=== PATIENT | female | born 1975 | race Caucasian/White ===

== ENCOUNTER → 2017-12-28 23:34 | Outpatient (CLI) | payer BC ==
[2012-03-14 06:30] VITALS: BMI 26.1
== END | disposition home or self-care (01) ==
LOC: D.MAMMO 12-06 11:30
DX: Z12.31 Encounter for screening mammogram for malignant neoplasm of breast (principal)

== ENCOUNTER → 2018-01-31 09:22 | Outpatient (CLI) | payer BC ==
[2012-03-14 06:30] VITALS: BMI 26.1
== END | disposition home or self-care (01) ==
LOC: D.MAMMO 01-23 14:30
DX: R92.8 Other abnormal and inconclusive findings on diagnostic imaging of breast (principal)

== ENCOUNTER → 2021-02-21 09:24 | Outpatient (CLI) | payer BC ==
[2012-03-14 06:30] VITALS: BMI 26.1
[2021-02-21 10:15] LABS: BASOPHILS 0.7 % (0-2); EOSINOPHILS 2.5 % (0-7); HEMATOCRIT 45.3 % (36.0-48.0); LYMPHOCYTES 37.7 % (15-50); MCH 31.9 pg (26.0-34.0); MCHC 33.2 g/dL (31.0-37.0); MCV 96.1 fL (80.0-100.0); MEAN PLATELET VOLUME 6.8 fL (7.4-10.4); MONOCYTES 7.8 % (2-11); NEUTROPHILS 51.3 % (40-80); PLATELET COUNT 285 10x3/uL (130-400); RBC 4.71 10x6/uL (4.00-5.40); RDW 12.7 % (11.5-14.5)
== END | disposition home or self-care (01) ==
LOC: D.LAB 09:24
PROVIDERS: ATTEND Internal Medicine Gastroenterology
DX: K62.5 Hemorrhage of anus and rectum (principal)